=== PATIENT | male | born 1995 | race Two or more races ===

== ENCOUNTER 2019-05-14 09:15 | Emergency (ER) | payer MEDICAID, MEDICARE, OTHER ==
[~2019-05-14] VITALS: Ht 172.7 cm; Wt 95.3 kg
[2019-05-14 09:20] VITALS: BP 125/79
--- NOTE | 2019-05-14 09:51 | Emergency Room Report ---
History of Present Illness General Chief Complaint: Earache Source: Patient Present Illness HPI Patient is a 24-year-old male who presented after increased left-sided earache. Patient had gradual onset of symptoms in the past 1 week. He reports having used hydrogen peroxide in his ears and having decreased hearing to left ear. He denies any fever. He denies any sore throat. Patient had not been having any vertigo or vomiting. He denies any leakage of fluid. Patient reports having pain to the left ear. He denies any problems with the right ear or sore throat. He had not been coughing or having any fever. He denies prior history of diabetes. Allergies: Coded Allergies: No Known Allergies (Unverified , 05/14/19) Patient History Past Medical History: see triage record Reviewed Nursing Documentation: PMH: Agreed; PSxH: Agreed Nursing Documentation-PMH Past Medical History: No Stated History Review of Systems All Other Systems: negative except mentioned in HPI Physical Exam Vital Signs Date Time Temp Pulse Resp B/P (MAP) Pulse Ox O2 Delivery O2 Flow Rate FiO2 05/14/19 09:20 97.9 75 20 125/79 99 Room Air General Appearance: well appearing, no apparent distress, alert, GCS 15 Head: normocephalic, atraumatic ENT: normal voice, other - left ear canal swelling and discoloration, no tm visualization Neck: full range of motion, supple Respiratory: no respiratory distress, speaking full sentences Cardiovascular #1: normal inspection Gastrointestinal: normal inspection Musculoskeletal: normal inspection Neurologic: normal inspection, alert, responsive, normal gait Psychiatric: mood/affect normal Skin: no rash Medical Decision Making Diagnostic Impression: Primary Impression: Otitis media ER Course patient presented for left ear pain. Differential diagnosis included was not limited to otitis media, malignant otitis externa, foreign body, cellulitis, mastoiditis, carotid dissection, myocardial infarction among others. Patient has a benign exam and does not appear to require any further imaging or laboratory testing at this time. Patient was noted to have some discoloration to the left ear canal. This may be related to the patient's recent use of hydrogen peroxide over cannot rule out otitis media. Patient will be given prescription for oral antibiotics. Patient was advised to follow-up with primary care physician for ENT referral. He is advised to return if worse. Last Vital Signs Date Time Temp Pulse Resp B/P (MAP) Pulse Ox O2 Delivery O2 Flow Rate FiO2 05/14/19 09:20 97.9 75 20 125/79 (94) 99 Room Air Status: improved Disposition: HOME, SELF-CARE Condition: Stable Scripts Ibuprofen* (MOTRIN*) 600 Mg Tablet 600 MG ORAL Q8H PRN for For Pain, #30 TAB 0 Refills Prov: Mohan Tyler MD 05/14/19 Amoxicillin* (AMOXIL*) 500 Mg Capsule 500 MG ORAL THREE TIMES A DAY, #21 CAP Prov: Mohan Tyler MD 05/14/19 Mohan Tyler MD May 14, 2019 09:51
[2019-05-14] MEDS ORDERED: IBUPROFEN600 MG ORAL (09:52)
[2019-05-14] MEDS ORDERED: AMOXICILLIN500 MG ORAL (09:52)
[2019-05-14 09:59] VITALS: BP 128/77
--- NOTE | 2019-05-14 09:59 | NUR ---
ER DISCHARGE NOTE: Pt was seen due to left ear pain with discharge Patient is cleared to be discharged per ERMD, pt is aox4, on room air, with stable vital signs. pt was given dc and prescription instructions, pt was able to verbalize understanding, pt id band removed without complications. pt is able to ambulate with steady gait. pt took all belongings.
== END 2019-05-14 09:59 | disposition home or self-care (01) ==
LOC: EMR 09:55
DX: H66.92 Otitis media, unspecified, left ear (principal)
CPT/HCPCS: 99282